=== PATIENT | male | born 1930 | race Caucasian/White ===

== ENCOUNTER 2019-04-06 10:41 | Observation (INO) | payer MEDICARE, OTHER ==
[2019-04-03 11:21] LABS: BASOPHILS % 0.5 % (0.0-1.0); EOSINOPHILS # (AUTO) 0.3 (0.0-0.4); EOSINOPHILS % 4.4 % (0.0-6.0); HEMATOCRIT 40.7 % (38.2-49.6); LYMPHOCYTES # (AUTO) 1.8 (1.0-3.2); LYMPHOCYTES % 27.6 % (18.0-39.1); MEAN CORPUSCULAR HEMOGLOBIN 32.3 pg (28-32); MEAN CORPUSCULAR HGB CONC 31.9 g/dL (31-35); MEAN CORPUSCULAR VOLUME 101.2 fL (81-99); MONOCYTES # (AUTO) 0.6 (0.2-0.8); MONOCYTES % 10.1 % (4.4-11.3); NEUTROPHILS # (AUTO) 3.6 (2.1-6.9); NEUTROPHILS % 56.9 % (38.7-80.0); PLATELET COUNT 130 x10e3/uL (140-360); RED BLOOD COUNT 4.02 x10e6/uL (4.3-5.7); RED CELL DISTRIBUTION WIDTH 13.6 % (11.7-14.4)
[2019-04-03 11:45] LABS: ALBUMIN 3.8 g/dL (3.5-5.0); ALBUMIN/GLOBULIN RATIO 1.2 (0.8-2.0); ANION GAP 15.2 mmol/L (8-16); CALCIUM 9.7 mg/dL (8.4-10.2); CREATININE, SERUM 1.43 mg/dL (0.72-1.25); POTASSIUM 4.2 mmol/L (3.5-5.1)
--- NOTE | 2019-04-03 12:17 | NUR ---
Notified Dr. Noel of creatinine 1.43. No new orders at this time.
[2019-04-03 12:20] LABS: EOSINOPHILS % (MANUAL) 4 % (0-7); LYMPHOCYTES % (MANUAL) 18 % (19-48); MONOCYTES % (MANUAL) 6 % (3.4-9.0); NEUTROPHILS % (MANUAL) 72 % (40-74)
[2019-04-03 12:21] LABS: ANISOCYTOSIS SLIGHT; PLATELET ESTIMATE SLIGHTLY DECREASED; PLATELET MORPHOLOGY COMMENT NORMAL; POIKILOCYTOSIS SLIGHT; RBC MORPHOLOGY COMMENT ABNORMAL
[~2019-04-06] VITALS: Ht 182.9 cm; Wt 95.3 kg
[2019-04-06] VITALS (9 sets, daily range): BP systolic 134–159; BP diastolic 53–85
[~2019-04-06 10:41] MED LIST: ASPIR-LOW81 MG PO; COQ-10100 MG PO; DIOVAN160 MG PO; FISH OIL300 MG PO; FLOMAX0.4 MG PO; LIPITOR40 MG PO; PANTOPRAZOLE SO40 MG PO; PLAVIX75 MG PO; PROTONIX40 MG PO; SUCRALFATE1 G/10 ML PO; Z.0.ECOTRIN325 MG PO; Z.0.LASIX20 MG; Z.0.METOPROLOL SUC10 PO; Z.0.NIASPAN1000 MG PO; Z.0.PLAVIX75 MG PO; Z.0.SIMVASTATIN40 MG PO; Z.0.VERAPAMIL ER240 PO; Z.1.HYDROCHLOROTH12. PO
[2019-04-06] MEDS ORDERED: ALPRAZOLAM 0.5 MG TAB ONE (11:50)
[2019-04-06] MEDS ORDERED: DIPHENHYDRAMINE HCL 25 MG CAP ONE (11:50)
[2019-04-06] MEDS ORDERED: FENTANYL CITRATE/PF 100MCG/2 ML INJ ONE (12:54)
[2019-04-06] MEDS ORDERED: HEPARIN SOD/SOD CHLORIDE 2,000 ML ONE (12:54)
[2019-04-06] MEDS ORDERED: IOPAMIDOL 300MG/ML 100 ML INFUS..BTL IV ONE (12:54)
[2019-04-06] MEDS ORDERED: SODIUM CHLORIDE 0.9% 1000ML 1,000 ML ONE (12:54)
[2019-04-06] MEDS ORDERED: MIDAZOLAM HCL 2 MG/2 ML VIAL ONE (12:54)
[2019-04-06] MEDS ORDERED: LIDOCAINE HCL 2% LOCAL 20 ML VIAL ONE (12:54)
--- NOTE | 2019-04-06 13:50 | NUR ---
1350 Bedside report received from Steph SOLARES. Alert oriented and appropriate, PERRLA, respirations even and unlabored to room air. Pulses x4 extremities equal and strong. Pedal pulses PT/DP x4 and marked. Cap fill brisk < 3 sec. Skin warm and dry integrity appears . IV 20g to left hand at 10cchr presents healthy w/o s/s of infiltration or complaint. Abdomen soft and supple. pt offered toileting, denies need to urinate or defecate. No personal affects with patient. Family at bedside. Currently w/o complaint of pain or need. Left groin shealth intact. 1402 sheath pull in progress Angie Rn at [facility] completed stasis at 1423.manual pressure for 20min. 4x4 dressing with Tegederm PPx4 with Doppler. 1515 phoned report to Faiza Gay stasis to left groin site at 1423 NO hematoma or bleeding. PPx4 with Doppler. Received tele box applied. No gross issues pain pallor pressure or dysrhythmia. Vs stable. 1515 Transport to floor care completed handoff left groin site remains intact with PPx4. with transport. Iv w/o s/s infiltration to continue at 100cchr till dc at 6pm remain flat till then Pt has copies of diagram legs and heart. Will need dc teaching. ds/rn
[2019-04-06] MEDS ORDERED: ATROPINE SULFATE 0.1 MG/ML 10ML SYR ONE (14:05)
--- NOTE | 2019-04-06 15:12 | NUR ---
RECEIVED REPORT FROM [employer] HELPER AT THIS TIME AWAITING FOR PT TO ARRIVE TO FLOOR
--- NOTE | 2019-04-06 15:30 | NUR ---
RECEIVED PT TO FLOOR [id number]. PT IS IN NO S.S OF DISTRESS DENIES PAIN PT HAS A LEFT HAND 20 WITH NS AT 100CC.HR SITE IS CLEAN AND DRY PT HAS A LEFT GROIN DRESSING DRY AND INTACT PEDAL PULSES PRESENT BILATERALLY PT IS ON TELE RUNNING AV PACED AT 60 PT IS TO LAY FLAT UNTIL 1800. PT AWARE WILL CONTINUE TO MONITOR PT AT THIS TIME SIDE RAILSX2, BED WHEELS LOCKED, CALL LIGHT IS WITHIN EASY REACH INSTRUCTED TO CALL FOR ASSISTANCE IF NEEDED
[2019-04-06] MEDS ORDERED: MORPHINE SULFATE 2 MG/ML SYR 1ML IV PRN (16:15)
[2019-04-06] MEDS ORDERED: SODIUM CHLORIDE 0.9% 1000ML 1,000 ML IV SCH (16:15)
--- NOTE | 2019-04-06 16:19 | NUR ---
LEFT GROIN DRESSING DRY AND INTACT PEDAL PULSES PRESENT BILATERALLY
[2019-04-06] MEDS ORDERED: MORPHINE SULFATE INJ 4 MG/ML INJ 1ML IV PRN (16:30)
--- NOTE | 2019-04-06 18:32 | NUR ---
LEFT GROIN DRESSING REMAINS DRY AND INTACT PEDAL PULSES PRESENT PT GOT OFF BED REST AT 1800 IV DC PRESSURE DRESSING APPLIED AND TAPED TELE DC DC INSTRUCTIONS GIVEN. PT VERBALIZED UNDERSTANDING PT IS NOW OFF UNIT TO HOME
--- NOTE | 2019-04-08 11:41 | Operative Report ---
DATE OF PROCEDURE: 04/06/2019 SURGEON: Deshawn Noel MD INDICATIONS: 1. Coronary artery disease, abnormal stress test. 2. Abdominal aortogram. 3. Third-order catheter placement from the left femoral artery to the right superficial femoral artery. 4. Bilateral lower extremity angiograms. COMPLICATIONS: None. RECOMMENDATIONS: Medical therapy. DESCRIPTION OF PROCEDURE: Access obtained in the left femoral artery and cardiac catheterization was performed. Left main heavily calcified 80% to 90% stenosis. Left anterior descending and circumflex artery was occluded. Right coronary artery was heavily calcified. Ostial 90% stenosis, mid 90% stenosis distally. The right coronary artery was occluded with faint collaterals filled the right posterior descending artery. Left internal mammary artery bypass to left anterior descending artery was widely patent. Saphenous vein bypass to obtuse marginal branch was widely patent. No intervention was deemed necessary. Abdominal aortogram demonstrated heavily calcified abdominal aorta with diffuse 50% to 70% stenosis in the abdominal aorta and iliacs. Bilateral common femoral artery is 80% and 90% stenosis. The catheter was then advanced in the left femoral artery to the right superficial femoral artery. Diffuse 50% to 70% heavily calcified stenosis in the right femoral artery. Left femoral artery had similar disease distally. The left femoral artery had 90% stenosis, severe calcification. No intervention was deemed necessary. Left groin sheath removed under manual pressure. The patient was discharged home same day. Deshawn Noel MD [facility] /[id number]
== END 2019-04-06 18:20 | disposition home or self-care (01) ==
LOC: CATH LAB 10:41 → PACU V 14:19 → MED/SURG 15:30
PROVIDERS: ADMIT Internal Medicine Interventional Cardiology; ATTEND Internal Medicine Interventional Cardiology
DX: I25.10 Atherosclerotic heart disease of native coronary artery without angina pectoris (principal); I73.9 Peripheral vascular disease, unspecified
CPT/HCPCS: 36247; 36415; 75625; 75716; 80053; 85025; 93455; C1769 ×2; C1887; G0378; J2001; J2250; J3010; J7030; Q9967

== ENCOUNTER 2019-04-10 07:30 | Emergency (ER) | payer MEDICARE, OTHER ==
[~2019-04-10] VITALS: Ht 182.9 cm; Wt 95.3 kg
--- NOTE | 2019-04-10 07:43 | NUR ---
PATIENT TO ROOM 9
--- NOTE | 2019-04-10 08:00 | NUR ---
PATIENT REFUSING RECTAL EXAM BY ER DOCTOR. WANTS DR. GARNER TO COME OVER FROM HIS OFFICE AND DO IT
[2019-04-10 08:28] LABS: BASOPHILS % 0.3 % (0.0-1.0); EOSINOPHILS # (AUTO) 0.4 (0.0-0.4); EOSINOPHILS % 5.7 % (0.0-6.0); HEMATOCRIT 40.9 % (38.2-49.6); HEMOGLOBIN 13.2 g/dL (14.0-18.0); LYMPHOCYTES # (AUTO) 1.6 (1.0-3.2); LYMPHOCYTES % 25.4 % (18.0-39.1); MEAN CORPUSCULAR HEMOGLOBIN 32.3 pg (28-32); MEAN CORPUSCULAR HGB CONC 32.3 g/dL (31-35); MONOCYTES # (AUTO) 0.6 (0.2-0.8); MONOCYTES % 8.7 % (4.4-11.3); NEUTROPHILS # (AUTO) 3.8 (2.1-6.9); NEUTROPHILS % 59.6 % (38.7-80.0); PLATELET COUNT 124 x10e3/uL (140-360); RED BLOOD COUNT 4.09 x10e6/uL (4.3-5.7); RED CELL DISTRIBUTION WIDTH 13.4 % (11.7-14.4)
--- NOTE | 2019-04-10 08:31 | NUR ---
PATIENT DEMANDING WE CALL PATSY TO LET HIM KNOW HE IS HERE. SPOKE WITH , SHE SAYS PATSY ALREADY KNOWS HE IS HERE. LET PATIENT KNOW ONCE WE GET RESULTS FROM BLOOD WORK WE WILL CALL HIM
[2019-04-10 08:55] LABS: INR 0.99; PROTHROMBIN TIME 13.6 seconds (11.9-14.5)
[2019-04-10 09:06] LABS: ALBUMIN 3.8 g/dL (3.5-5.0); ALBUMIN/GLOBULIN RATIO 1.4 (0.8-2.0); ANION GAP 13.1 mmol/L (8-16); CALCIUM 9.4 mg/dL (8.4-10.2); CREATININE, SERUM 1.26 mg/dL (0.72-1.25); POTASSIUM 4.1 mmol/L (3.5-5.1)
--- NOTE | 2019-04-10 10:24 | NUR ---
DR. MORAN SPEAKING WITH DR. Sudhakar GARNER
== END 2019-04-10 10:51 | disposition home or self-care (01) ==
LOC: ER 07:30
DX: R42 Dizziness and giddiness (principal); R53.1 Weakness; K62.5 Hemorrhage of anus and rectum
CPT/HCPCS: 36415; 80053; 85025; 85610; 99283

== ENCOUNTER → 2019-04-13 | Day surgery (SDC) | payer MEDICARE, OTHER ==
[~2019-04-13] MED LIST changes: +GLUCAGON FOR INJ 1 MG VIAL ONE; +HYOSCYAMINE 0.125 MG TAB ONE; +LIDOCAINE HCL 2% LOCAL INJ 5 ML SDV VIAL INJ ONE; +PROPOFOL IV EMULSION 10 MG/ML 50 ML VIAL ONE
[2019-04-13 19:00] VITALS: BP 132/31
--- NOTE | 2019-04-13 20:14 | Operative Report ---
DATE OF PROCEDURE: 04/13/2019 SURGEON: Pelon Lawson MD PROCEDURE: Colonoscopy with polypectomy. INDICATIONS FOR COLONOSCOPY: Rectal bleeding, constipation. MEDICATIONS: The patient was done under MAC, please see anesthesiologist's note. PROCEDURE IN DETAIL: With the patient in the left lateral decubitus position, a flexible fiberoptic Olympus colonoscope was inserted into the rectum with ease and advanced all the way to the cecum. The scope was then withdrawn slowly. Mucosa overlying the cecum, ascending colon, and transverse grossly appeared to be within normal limits. One polyp was hot biopsied from the descending colon. Diverticular disease was noted to involve the descending and the sigmoid. Two polyps were hot biopsied from the rectum. The scope was then retroflexed into the distal rectum and moderate-sized internal hemorrhoids were noted, none of which was actively bleeding. The scope was then straightened out, it was subsequently withdrawn, and the patient tolerated the procedure well. IMPRESSION: 1. Diverticulosis. 2. Descending colon polyp, hot biopsied. 3. Rectal polyps x2, hot biopsied. 4. Internal hemorrhoids, none actively bleeding. PLAN: Follow up histology. Initiate high-fiber, low-fat diet. Initiate high-fiber supplement. Start Anucort-HC suppositories b.i.d. x10 days and p.r.n. The patient might benefit from a followup colonoscopy in 5 years. Pelon Lawson MD [facility] [place]/YVONNE /[id number] cc: Ron Sanders DO
== END | disposition home or self-care (01) ==
LOC: OR 14:02
PROVIDERS: ATTEND Internal Medicine Gastroenterology
DX: K92.1 Melena (principal); D12.4 Benign neoplasm of descending colon; K62.1 Rectal polyp; K59.00 Constipation, unspecified; K57.30 Diverticulosis of large intestine without perforation or abscess without bleeding; K64.8 Other hemorrhoids; I25.810 Atherosclerosis of coronary artery bypass graft(s) without angina pectoris; I10 Essential (primary) hypertension; G62.9 Polyneuropathy, unspecified; R53.1 Weakness; E78.5 Hyperlipidemia, unspecified; I73.9 Peripheral vascular disease, unspecified; Z01.810 Encounter for preprocedural cardiovascular examination; Z79.02 Long term (current) use of antithrombotics/antiplatelets; Z95.0 Presence of cardiac pacemaker; Z95.1 Presence of aortocoronary bypass graft; Z95.820 Peripheral vascular angioplasty status with implants and grafts; Z87.891 Personal history of nicotine dependence
CPT/HCPCS: 45384; 88305; 93005; J1610; J2001; J2704; 45378

== ENCOUNTER 2022-01-22 09:33 | Observation (INO) | payer MEDICARE, OTHER ==
[~2022-01-22] VITALS: Ht 182.9 cm; Wt 90.7 kg
[~2022-01-22 09:33] MED LIST changes: -GLUCAGON FOR INJ 1 MG VIAL ONE; -HYOSCYAMINE 0.125 MG TAB ONE; -LIDOCAINE HCL 2% LOCAL INJ 5 ML SDV VIAL INJ ONE; -PROPOFOL IV EMULSION 10 MG/ML 50 ML VIAL ONE; +SODIUM CHLORIDE FLUSH 10 ML SYR IV PRN
[2022-01-22 10:24] LABS: BASOPHILS % 0.5 % (0.0-1.0); EOSINOPHILS # (AUTO) 0.4 (0.0-0.4); EOSINOPHILS % 6.2 % (0.0-6.0); HEMATOCRIT 40.1 % (38.2-49.6); HEMOGLOBIN 12.9 g/dL (14.0-18.0); LYMPHOCYTES # (AUTO) 1.5 (1.0-3.2); LYMPHOCYTES % 27.2 % (18.0-39.1); MEAN CORPUSCULAR HEMOGLOBIN 32.7 pg (28-32); MEAN CORPUSCULAR HGB CONC 32.2 g/dL (31-35); MEAN CORPUSCULAR VOLUME 101.5 fL (81-99); MONOCYTES # (AUTO) 0.5 (0.2-0.8); MONOCYTES % 8.6 % (4.4-11.3); NEUTROPHILS # (AUTO) 3.3 (2.1-6.9); NEUTROPHILS % 57.3 % (38.7-80.0); PLATELET COUNT 133 x10e3/uL (140-360); RED BLOOD COUNT 3.95 x10e6/uL (4.3-5.7); RED CELL DISTRIBUTION WIDTH 13.6 % (11.7-14.4)
[2022-01-22 10:32] LABS: INR 0.97; PROTHROMBIN TIME 13.8 seconds (11.9-14.5)
[2022-01-22 10:33] LABS: PARTIAL THROMBOPLASTIN TIME 27.1 seconds (23.8-35.5)
[2022-01-22 10:41] LABS: ALBUMIN 3.6 g/dL (3.5-5.0); ALBUMIN/GLOBULIN RATIO 1.1 (0.8-2.0); ANION GAP 14.2 mmol/L (8-16); CALCIUM 8.9 mg/dL (8.4-10.2); CREATININE, SERUM 1.54 mg/dL (0.72-1.25); POTASSIUM 4.2 mmol/L (3.5-5.1)
[2022-01-22 10:56] LABS: CLARITY,URINE CLEAR (CLEAR); COLOR,URINE YELLOW (YELLOW)
[2022-01-22 11:00] LABS: LEUKOCYTE ESTERASE ,URINE NEGATIVE (NEGATIVE); NITRITE,URINE NEGATIVE (NEGATIVE); PROTEIN,URINE DIPSTICK TRACE (NEGATIVE)
[2022-01-22 11:01] LABS: KETONES,URINE TRACE (NEGATIVE); URINE UROBILINOGEN 0.2 mg/dL (0.2 - 1)
[2022-01-22 11:18] LABS: BACTERIA,URINE MODERATE /HPF; EPITHELIAL CELLS,URINE FEW /LPF; RBC,URINE 0-5 /HPF (0-5); WBC,URINE (MAN) 0-5 /HPF (0-5)
[2022-01-22] MEDS: SODIUM CHLORIDE 0.9% 1000ML 1,000 ML IV SCH ×2 (11:27→16:00)
[2022-01-22 14:05] VITALS: BP 158/65
[2022-01-22 14:15] VITALS: BP 158/65
[2022-01-22] MEDS ORDERED: FUROSEMIDE40 MG PO (15:48)
[2022-01-22] MEDS ORDERED: ACETAMINOPHEN 325 MG TAB PO PRN (18:30)
[2022-01-22] MEDS ORDERED: ONDANSETRON HCL INJ 2MG/ML 2ML 2 MG/ML VIAL IV PRN (18:30)
[2022-01-22] MEDS ORDERED: DOCUSATE SODIUM 100 MG CAP PO PRN (18:30)
[2022-01-22 20:21] VITALS: BP 137/61
[2022-01-22 21:00] VITALS: BP 137/61
[2022-01-23] MEDS: SODIUM CHLORIDE 0.9% 1000ML 1,000 ML IV SCH ×2 (00:20→11:40)
[2022-01-23] MEDS ORDERED: BISACODYL 10 MG SUPP PR ONE (00:45)
[2022-01-23 01:08] VITALS: BP 131/60
[2022-01-23 04:59] LABS: BASOPHILS % 0.3 % (0.0-1.0); EOSINOPHILS # (AUTO) 0.4 (0.0-0.4); EOSINOPHILS % 6.3 % (0.0-6.0); HEMATOCRIT 34.7 % (38.2-49.6); HEMOGLOBIN 11.1 g/dL (14.0-18.0); LYMPHOCYTES # (AUTO) 1.5 (1.0-3.2); LYMPHOCYTES % 26.1 % (18.0-39.1); MEAN CORPUSCULAR HEMOGLOBIN 32.8 pg (28-32); MEAN CORPUSCULAR VOLUME 102.7 fL (81-99); MONOCYTES # (AUTO) 0.6 (0.2-0.8); MONOCYTES % 10.6 % (4.4-11.3); NEUTROPHILS # (AUTO) 3.2 (2.1-6.9); NEUTROPHILS % 56.2 % (38.7-80.0); PLATELET COUNT 111 x10e3/uL (140-360); RED BLOOD COUNT 3.38 x10e6/uL (4.3-5.7); RED CELL DISTRIBUTION WIDTH 13.5 % (11.7-14.4)
[2022-01-23 05:01] VITALS: BP 133/65
[2022-01-23 05:16] LABS: ALBUMIN/GLOBULIN RATIO 1.2 (0.8-2.0); ANION GAP 10.3 mmol/L (8-16); CALCIUM 8.3 mg/dL (8.4-10.2); CREATININE, SERUM 1.34 mg/dL (0.72-1.25); POTASSIUM 4.3 mmol/L (3.5-5.1)
[2022-01-23 07:45] VITALS: BP 145/56
[2022-01-23 08:11] VITALS: BP 145/56
[2022-01-23] MEDS ORDERED: POLYETHYLENE GLYCOL 3350 17 GM PACK PO SCH (09:00)
[2022-01-23] MEDS ORDERED: METOPROLOL SUCCINATE 50 MG TAB XL PO SCH (09:00)
[2022-01-23] MEDS ORDERED: PANTOPRAZOLE SO40 MG PO (11:00)
[2022-01-23 11:07] VITALS: BP 131/65
[2022-01-23] MEDS ORDERED: ATORVASTATIN 40 MG TAB PO SCH (21:00)
== END 2022-01-23 12:21 | disposition home or self-care (01) ==
LOC: ER 09:39 → INTOOBSV 12:46 → ERHOLD 12:46 → MED/SURG 14:02
PROVIDERS: ADMIT Internal Medicine; ATTEND Internal Medicine
DX: K57.31 Diverticulosis of large intestine without perforation or abscess with bleeding (principal); K64.8 Other hemorrhoids; E78.5 Hyperlipidemia, unspecified; I25.2 Old myocardial infarction; D69.6 Thrombocytopenia, unspecified; K80.20 Calculus of gallbladder without cholecystitis without obstruction; I11.9 Hypertensive heart disease without heart failure; I25.10 Atherosclerotic heart disease of native coronary artery without angina pectoris; Z85.51 Personal history of malignant neoplasm of bladder; Z85.828 Personal history of other malignant neoplasm of skin; Z95.0 Presence of cardiac pacemaker; Z95.1 Presence of aortocoronary bypass graft; Z95.5 Presence of coronary angioplasty implant and graft; Z87.891 Personal history of nicotine dependence; Z20.822 Contact with and (suspected) exposure to COVID-19
CPT/HCPCS: 36415 ×2; 71045; 74176; 80053 ×2; 81001; 83690; 84484; 85025 ×2; 85610; 85730; 86850; 86900; 93005; 99284; C9113 ×2; G0378 ×2; J7030; U0002

== ENCOUNTER 2022-03-15 10:29 | Emergency (ER) | payer MEDICARE, OTHER ==
[~2022-03-15] VITALS: Ht 182.9 cm; Wt 90.7 kg
[~2022-03-15 10:29] MED LIST changes: +FUROSEMIDE40 MG PO; -SODIUM CHLORIDE FLUSH 10 ML SYR IV PRN
[2022-03-15] MEDS ORDERED: SODIUM CHLORIDE 0.9% 1000ML 1,000 ML IV STA (10:36)
[2022-03-15] MEDS ORDERED: ONDANSETRON HCL INJ 2MG/ML 2ML 2 MG/ML VIAL IV PRN (10:45)
[2022-03-15 11:28] LABS: BASOPHILS % 0.4 % (0.0-1.0); EOSINOPHILS # (AUTO) 0.3 (0.0-0.4); HEMATOCRIT 36.9 % (38.2-49.6); HEMOGLOBIN 11.8 g/dL (14.0-18.0); LYMPHOCYTES # (AUTO) 1.1 (1.0-3.2); MONOCYTES # (AUTO) 0.5 (0.2-0.8); MONOCYTES % 8.9 % (4.4-11.3); NEUTROPHILS # (AUTO) 3.3 (2.1-6.9); NEUTROPHILS % 64.5 % (38.7-80.0); PLATELET COUNT 136 x10e3/uL (140-360); RED BLOOD COUNT 3.69 x10e6/uL (4.3-5.7); RED CELL DISTRIBUTION WIDTH 14.3 % (11.7-14.4)
[2022-03-15 12:02] LABS: ALBUMIN 3.7 g/dL (3.5-5.0); ALBUMIN/GLOBULIN RATIO 1.2 (0.8-2.0); ANION GAP 13.5 mmol/L (8-16); CALCIUM 8.6 mg/dL (8.4-10.2); CREATININE, SERUM 1.54 mg/dL (0.72-1.25); POTASSIUM 4.5 mmol/L (3.5-5.1)
[2022-03-15] MEDS ORDERED: IOPAMIDOL 370 MG/ML 100 ML INFUS..BTL INJ ONE (12:32)
[2022-03-15] MEDS ORDERED: SODIUM CHLORIDE 0.9% 100 ML ONE (12:32)
[2022-03-15 17:50] VITALS: BP 149/49
== END 2022-03-15 17:10 | disposition other institution (70) ==
LOC: ER 10:40
DX: K92.2 Gastrointestinal hemorrhage, unspecified (principal); D64.9 Anemia, unspecified; I10 Essential (primary) hypertension; E78.5 Hyperlipidemia, unspecified; I25.2 Old myocardial infarction; Z95.5 Presence of coronary angioplasty implant and graft; Z95.810 Presence of automatic (implantable) cardiac defibrillator; Z85.828 Personal history of other malignant neoplasm of skin; Z85.51 Personal history of malignant neoplasm of bladder; Z20.822 Contact with and (suspected) exposure to COVID-19
CPT/HCPCS: 36415; 74174; 80053; 83690; 85025; 99284; J7030; J7050; Q9967; U0002